=== PATIENT | male | born 1970 | race Caucasian/White ===

== ENCOUNTER 2019-01-17 20:25 | Emergency (ER) | payer OTHER ==
[2019-01-17 20:34] VITALS: BP 131/87; PULSE 86; TEMP 97.9; BMI 35.6
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
[2019-01-17] MEDS ORDERED: IBUPROFEN 600 MG TABLET (FP) PO ONE ×2 (21:36→21:38)
== END 2019-01-17 21:40 | disposition home or self-care (01) ==
LOC: SUPCPDRO 20:25 → FER 20:25
DX: S16.1XXA Strain of muscle, fascia and tendon at neck level, initial encounter (principal); S39.012A Strain of muscle, fascia and tendon of lower back, initial encounter; V43.52XA Car driver injured in collision with other type car in traffic accident, initial encounter; Y93.89 Activity, other specified; Y92.410 Unspecified street and highway as the place of occurrence of the external cause
CPT/HCPCS: 99281-25